=== PATIENT | male | born 1975 | race Hispanic/Latino ===

== ENCOUNTER 2021-10-16 20:40 | Emergency (ER) | payer SELFPAY ==
[~2021-10-16] VITALS: Ht 157.5 cm; Wt 68.9 kg
[2021-10-16] MEDS ORDERED: CLEOCIN HCL300 MG PO (21:40)
[2021-10-16] MEDS ORDERED: DOXYCYCLINE HY100 MG PO (21:40)
[2021-10-16] MEDS ORDERED: PROBIOTIC & AC1 EACH PO (21:40)
[2021-10-16] MEDS ORDERED: IBUPROFEN200 MG PO (21:40)
[2021-10-16] MEDS ORDERED: Clindamycin INJ 150 MG/ML 600 MG Vial ONE (21:43)
== END 2021-10-16 22:10 | disposition home or self-care (01) ==
LOC: FSED 20:49
DX: S51.001A Unspecified open wound of right elbow, initial encounter (principal); L03.113 Cellulitis of right upper limb; E11.9 Type 2 diabetes mellitus without complications
CPT/HCPCS: 99282

== ENCOUNTER 2024-12-27 21:03 | Inpatient (IN) | payer OTHER ==
[~2024-12-27] VITALS: Ht 160 cm; Wt 62.1 kg
[~2024-12-27 21:03] MED LIST: CLEOCIN HCL300 MG PO; DOXYCYCLINE HY100 MG PO; IBUPROFEN200 MG PO; PROBIOTIC & AC1 EACH PO
[2024-12-27 21:16] VITALS: PULSE 78; RESP 16; TEMP 99
[2024-12-27] MEDS: Morphine 4mg INJECTION 4 MG/ML INJ IV ONE (21:53)
[2024-12-27] MEDS: KETOROLAC TROMETHAMINE 30 MG/ML VIAL IV STA (21:54)
[2024-12-27] MEDS: SODIUM CHLORIDE 0.9% 1000ML 1,000 ML IV ONE (21:54)
[2024-12-27] MEDS ORDERED: IOPAMIDOL 370 MG/ML 100 ML INFUS..BTL INJ ONE (22:03)
[2024-12-27] MEDS ORDERED: INSULIN REGULAR, HUMAN 100 UNIT/1 ML ONE (23:41)
[2024-12-28] VITALS (13 sets, daily range): BP systolic 96–132; BP diastolic 66–83; PULSE 65–81; RESP 18–21; TEMP 97.7–98.8; O2SAT 96–100
[2024-12-28] MEDS ORDERED: Morphine 4mg INJECTION 4 MG/ML INJ IV PRN
[2024-12-28] MEDS ORDERED: DEXTROSE 50% SYRINGE 50 ML IV PRN ×2 (01:00→02:00)
[2024-12-28] MEDS ORDERED: Morphine 2mg Syringe 2 MG/ML SYR IV PRN (02:00)
[2024-12-28] MEDS ORDERED: HYDRALAZINE HCL 20 MG/ML VIAL IV PRN (02:00)
[2024-12-28] MEDS ORDERED: POTASSIUM CHLORIDE 20 MEQ TAB CR PO PRN (02:00)
[2024-12-28] MEDS ORDERED: ACETAMINOPHEN 325 MG TAB PO PRN (02:00)
[2024-12-28] MEDS ORDERED: ONDANSETRON HCL INJ 2MG/ML 2ML 2 MG/ML VIAL IV PRN ×2 (02:00)
[2024-12-28] MEDS ORDERED: SIMETHICONE 80 MG CHEW PO PRN (02:00)
[2024-12-28] MEDS ORDERED: ALBUTEROL/IPRATROPIUM 3 ML NEB NEB PRN (02:00)
[2024-12-28] MEDS ORDERED: BENZONATATE 100 MG CAP PO PRN (02:00)
[2024-12-28] MEDS ORDERED: LIDOCAINE 4% PATCH TP PRN (02:00)
[2024-12-28] MEDS ORDERED: DIPHENHYDRAMINE HCL 25 MG CAP PO PRN (02:00)
[2024-12-28] MEDS ORDERED: DOCUSATE SODIUM 100 MG CAP PO PRN (02:00)
[2024-12-28] MEDS: INSULIN REGULAR, HUMAN 100 UNIT/1 ML IV ONE (02:01)
[2024-12-28] MEDS: INSULIN GLARGINE 100 UNITS/ML VIAL SQ SCH ×2 (02:01→21:08)
[2024-12-28] MEDS: SODIUM CHLORIDE 0.9% 1000ML 1,000 ML IV SCH ×2 (02:04)
[2024-12-28] MEDS ORDERED: METFORMIN HCL850 MG PO (02:19)
[2024-12-28] MEDS ORDERED: GLIMEPIRIDE2 MG PO (02:19)
[2024-12-28] MEDS: MELATONIN 5 MG TABLET PO PRN (02:28)
[2024-12-28] MEDS: SODIUM CHLORIDE 0.9% 1000ML 500 ML IV ONE (02:30)
[2024-12-28 07:45] LABS: BASOPHILS % 0.5 % (0.0-1.0); EOSINOPHILS % 2.1 % (0.0-6.0); LYMPHOCYTES % 39.4 % (18.0-39.1); MONOCYTES % 11.3 % (4.4-11.3); NEUTROPHILS % 46.4 % (38.7-80.0); RED CELL DISTRIBUTION WIDTH 11.8 % (11.7-14.4)
[2024-12-28 08:19] LABS: CHOL/HDL RATIO 4.8 (3.9-4.7); EST GLOMERULAR FILTRATION RATE 115.0 ML/MIN (>=60); LDL CHOLESTEROL 110.0 MG/DL (60-130); PHOSPHORUS 4.1 MG/DL (2.3-4.7)
[2024-12-28] MEDS: PANTOPRAZOLE SOD 40 MG TABEC PO SCH (08:50)
[2024-12-28] MEDS: INSULIN REGULAR, HUMAN 100 UNIT/1 ML SQ SCH (08:52)
[2024-12-28] MEDS: POTASSIUM CHLORIDE 20 MEQ TAB CR PO STA (15:08)
[2024-12-28] MEDS: INSULIN LISPRO 100 UNIT/1 ML 3ML VIAL SQ SCH ×2 (16:27→16:28)
[2024-12-28] MEDS: ENOXAPARIN SOD INJ 40 MG/0.4 ML SYR SC SCH (16:28)
[2024-12-29 04:58] VITALS: BP 118/77; PULSE 68; RESP 18; TEMP 98.1; O2SAT 99
[2024-12-29 07:28] VITALS: PULSE 66; RESP 20; O2SAT 99
[2024-12-29 08:30] VITALS: BP 103/63; PULSE 65; RESP 20; TEMP 97.9; O2SAT 99
[2024-12-29 09:17] VITALS: BP 103/63; PULSE 65; RESP 18; TEMP 97.9; O2SAT 100
[2024-12-29 15:28] LABS: BASOPHILS % 0.2 % (0.0-1.0); EOSINOPHILS % 1.3 % (0.0-6.0); LYMPHOCYTES % 25.6 % (18.0-39.1); MONOCYTES % 7.6 % (4.4-11.3); NEUTROPHILS % 65.1 % (38.7-80.0); RED CELL DISTRIBUTION WIDTH 12.3 % (11.7-14.4)
[2024-12-29 15:41] LABS: EST GLOMERULAR FILTRATION RATE 116.0 ML/MIN (>=60)
[2024-12-29 16:24] VITALS: BP 115/57; PULSE 66; RESP 18; TEMP 98.1; O2SAT 100
[2024-12-29 16:25] VITALS: BP 106/65; PULSE 67; RESP 18; TEMP 98.1; O2SAT 100
[2024-12-29] MEDS ORDERED: INSULIN GLARGINE 100 UNITS/ML VIAL SQ SCH (21:00)
== END 2024-12-29 19:00 | disposition home or self-care (01) | DRG 639 ==
LOC: FSED 21:10 → ERHOLD 23:54 → MED/SURG2 12-28 01:24 → OBSVTOIN 12-29 14:53
PROVIDERS: ADMIT Internal Medicine; ATTEND Internal Medicine
DX: E11.65 Type 2 diabetes mellitus with hyperglycemia (principal); R53.1 Weakness; R74.01 Elevation of levels of liver transaminase levels; E78.5 Hyperlipidemia, unspecified; I10 Essential (primary) hypertension; E11.42 Type 2 diabetes mellitus with diabetic polyneuropathy; E86.0 Dehydration; Z79.4 Long term (current) use of insulin; Z79.84 Long term (current) use of oral hypoglycemic drugs; Z91.148 Patient's other noncompliance with medication regimen for other reason
CPT/HCPCS: 36415; 71045; 74177; 80048; 80053; 80061; 80076; 81003; 82948; 83036; 83690; 83735; 84100; 84439; 84443; 84484; 85025; 94799; 99284; G0378; J1650; J1885; J2270; J2470; J7030; Q9967